=== PATIENT | female | born 1995 | race Two or more races ===

== ENCOUNTER 2024-07-16 09:43 | Outpatient (CLI) | payer OTHER | END 2024-07-16 09:53 | disposition home or self-care (01) | LOC: SONOGRAMA 09:43 | PROVIDERS: ATTEND Obstetrics & Gynecology Reproductive Endocrinology | DX: N93.8 Other specified abnormal uterine and vaginal bleeding (principal) ==

== ENCOUNTER 2025-02-20 09:06 | Outpatient (CLI) | payer OTHER | END 2025-02-20 09:07 | disposition home or self-care (01) | LOC: PRENATAL 09:06 | PROVIDERS: ATTEND Obstetrics & Gynecology Maternal & Fetal Medicine | DX: O36.80X0 Pregnancy with inconclusive fetal viability, not applicable or unspecified (principal); Z36.82 Encounter for antenatal screening for nuchal translucency; O09.819 Supervision of pregnancy resulting from assisted reproductive technology, unspecified trimester; Z3A.12 12 weeks gestation of pregnancy ==

== ENCOUNTER 2025-04-17 07:34 | Outpatient (CLI) | payer OTHER | END 2025-04-17 07:35 | disposition home or self-care (01) | LOC: PRENATAL 07:34 | PROVIDERS: ATTEND Obstetrics & Gynecology Maternal & Fetal Medicine | DX: O44.02 Complete placenta previa NOS or without hemorrhage, second trimester (principal); O09.812 Supervision of pregnancy resulting from assisted reproductive technology, second trimester; O34.42 Maternal care for other abnormalities of cervix, second trimester; Z3A.20 20 weeks gestation of pregnancy ==